=== PATIENT | male | born 1960 | race Caucasian/White ===

== ENCOUNTER 2019-08-29 11:46 | Inpatient (IN) | payer MEDICAID, OTHER ==
[~2019-08-29] VITALS: Ht 167.6 cm; Wt 60.8 kg
[~2019-08-29 11:46] MED LIST: ASPI-1497 PO; LEVO175T7 PO; METO25TA6 PO; NITR0.4T SL; SIMV-43 PO
[2019-08-29] MEDS ORDERED: ONDANSETRON HCL 4MG/2ML INJ IV STA (12:18)
[2019-08-29] MEDS ORDERED: FAMOTIDINE 20MG/2ML VIAL IV STA (12:18)
[2019-08-29] MEDS ORDERED: ATROPINE SULFATE 1MG/10ML SYR ONE (12:24)
[2019-08-29] MEDS ORDERED: ATROPINE SULFATE 1MG/ML VIAL IV ONE (12:30)
[2019-08-29 12:56] LABS: BASOPHILS % 0.8 % (0.0-2.0); EOSINOPHILS % 2.1 % (0.0-5.0); HEMATOCRIT. 43.8 % (42.0-52.0); HEMOGLOBIN. 15.1 g/dL (14.0-18.0); LYMPHOCYTES % 23.5 % (20.0-50.0); MEAN CORPUSCULAR HEMOGLOBIN 32.1 pg (28.0-32.0); MEAN CORPUSCULAR VOLUME 93.3 fL (80.0-94.0); MEAN PLATELET VOLUME 9.1 fl (7.4-10.4); MONOCYTES % 9.3 % (2.0-8.0); NEUTROPHILS % 64.3 % (40.0-76.0); PLATELET 152 x1000/uL (130-400); RED CELL DISTRIBUTION WIDTH 15.1 % (11.6-14.6)
[2019-08-29 12:59] LABS: CHLORIDE 112 mEq/L (98-107)
[2019-08-29 13:00] LABS: INR 1.1
[2019-08-29 13:03] LABS: ETHANOL BLOOD < 10 mg/dL
[2019-08-29] MEDS ORDERED: DOPAMINE 400MG/250ML PREMIX 250 ML IV ONE ×2 (13:06→19:15)
[2019-08-29] MEDS ORDERED: LIDOCAINE HCL 1% 20ML VIAL (Pyxis) INJ ONE (13:08)
[2019-08-29] MEDS ORDERED: DEXTROSE 50% WATER 50ML SYRINGE IV ONE (13:15)
[2019-08-29] MEDS ORDERED: IPRATROPIUM/ALBUTEROL 0.5-3(2.5)MG/3ML NEB NEB PRN (13:45)
[2019-08-29] MEDS ORDERED: ONDANSETRON HCL 4MG/2ML INJ IV PRN (13:45)
[2019-08-29] MEDS ORDERED: KETOROLAC 30MG/ML VIAL IV PRN (13:45)
[2019-08-29] MEDS ORDERED: MAGNESIUM/ALUMINUM HYDROXIDE/SIMETHICONE 30ML UDC PO PRN (13:45)
[2019-08-29] MEDS ORDERED: NITROGLYCERIN 0.4MG TABLET SL SL PRN (13:45)
[2019-08-29] MEDS ORDERED: GUAIFENESIN 200MG/10ML SUGAR FREE UDC PO PRN (13:45)
[2019-08-29] MEDS ORDERED: CLONIDINE 0.1MG TABLET PO PRN (13:45)
[2019-08-29] MEDS ORDERED: ACETAMINOPHEN 325MG TABLET PO PRN ×2 (13:45)
[2019-08-29] MEDS ORDERED: LEVOTHYROXINE SODIUM 100 MCG/ VIAL IV SCH (14:00)
[2019-08-29] MEDS: ENOXAPARIN 40MG/0.4ML SYR SUBCUT SCH (14:00)
[2019-08-29] MEDS ORDERED: ASPIRIN 325MG EC TABLET PO SCH ×2 (14:00→14:15)
[2019-08-29] MEDS: ZINC SULFATE 220 MG ( 50 ) CAPSULE PO SCH (15:29)
[2019-08-29 15:51] LABS: CLARITY URINE CLEAR (CLEAR); COLOR URINE YELLOW (YELLOW); KETONES URINE NEGATIVE (NEGATIVE); LEUKOCYTE ESTERASE URINE NEGATIVE (NEGATIVE); NITRITE URINE NEGATIVE (NEGATIVE); OCCULT BLOOD URINE TRACE (NEGATIVE); PH URINE 6.5 (4.5-8.0); PROTEIN URINE NEGATIVE (NEGATIVE); SPECIFIC GRAVITY URINE 1.013 (1.005-1.030); UROBILINOGEN URINE 0.2 E.U./dL (0.2-1.0)
[2019-08-29 16:32] LABS: *AMPHETAMINES SCREEN URINE NEGATIVE (NEGATIVE); *BARBITURATES SCREEN URINE NEGATIVE (NEGATIVE); *BENZODIAZEPINES SCREEN URINE NEGATIVE (NEGATIVE); *COCAINE SCREEN URINE PRESUMTIVE POSITIVE (NEGATIVE); METHADONE URINE SCREEN NEGATIVE (NEGATIVE); OPIATES URINE SCREEN NEGATIVE (NEGATIVE)
[2019-08-29 16:33] LABS: CANNABINOID URINE SCREEN NEGATIVE (NEGATIVE); PHENCYCLIDINE URINE SCREEN NEGATIVE (NEGATIVE)
[2019-08-29] MEDS ORDERED: DOPAMINE 800MG PREMIX (DOUBLE) 250 ML IV PRN (19:00)
[2019-08-29] MEDS: DOPAMINE 400MG/250ML PREMIX 250 ML IV PRN (20:43)
[2019-08-29] MEDS: ASCORBIC ACID 500 MG TABLET PO SCH (21:00)
[2019-08-29] MEDS: FAMOTIDINE 20MG TABLET PO SCH (21:00)
[2019-08-29 21:35] LABS: T4 FREE 0.55 ng/dL (0.76-1.46)
[2019-08-30] VITALS (60 sets, daily range): BP systolic 46–199; BP diastolic 22–139
[2019-08-30 00:11] LABS: CREATINE KINASE MB FRACTION 22.1 ng/mL (0.5-3.6)
[2019-08-30 00:25] LABS: CREATINE KINASE 2055 IU/L (39-308)
[2019-08-30] MEDS: ZOLPIDEM TARTRATE 5MG TABLET PO PRN ×2 (00:57→20:20)
[2019-08-30] MEDS ORDERED: LEVOTHYROXINE SODIUM 50MCG TABLET PO SCH (06:30)
[2019-08-30] MEDS ORDERED: DOPAMINE HCL 400 MG in DEXT 5% WATER 250 ML IV PRN (09:45)
[2019-08-30] MEDS ORDERED: SODIUM BICARBONATE 4% (2.4MEQ) 5ML VIAL IV ONE (09:47)
[2019-08-30] MEDS ORDERED: LIDOCAINE HCL 1% 20ML VIAL (Pyxis) INJ ONE (09:47)
[2019-08-30] MEDS: FAMOTIDINE 20MG TABLET PO SCH ×2 (10:30→20:13)
[2019-08-30] MEDS: TAMSULOSIN HCL 0.4MG SR CAPSULE PO SCH ×2 (10:30→20:20)
[2019-08-30] MEDS: ASCORBIC ACID 500 MG TABLET PO SCH ×2 (10:30→20:12)
[2019-08-30] MEDS: ASPIRIN 81MG TABLET PO SCH ×2 (10:30→18:36)
[2019-08-30] MEDS: ZINC SULFATE 220 MG ( 50 ) CAPSULE PO SCH (10:31)
[2019-08-30] MEDS: LEVOTHYROXINE SODIUM 150MCG TABLET PO SCH (10:31)
[2019-08-30] MEDS: KETOROLAC 15MG/ML VIAL IV PRN ×2 (10:32→19:07)
[2019-08-30] MEDS: DOPAMINE 400MG/250ML PREMIX 250 ML IV PRN ×2 (11:30→16:26)
[2019-08-30] MEDS ORDERED: DOBUTAMINE 250MG PREMIX 250 ML IV SCH (13:00)
[2019-08-30] MEDS ORDERED: DOBUTAMINE 250MG PREMIX 250 ML IV PRN (13:00)
[2019-08-30] MEDS: DUTASTERIDE 0.5MG CAPSULE PO SCH (13:37)
[2019-08-30] MEDS: ENOXAPARIN 40MG/0.4ML SYR SUBCUT SCH (13:44)
[2019-08-31] VITALS (95 sets, daily range): BP systolic 31–147; BP diastolic 15–86
[2019-08-31] MEDS: DOPAMINE 400MG/250ML PREMIX 250 ML IV PRN ×3 (03:11→23:01)
[2019-08-31] MEDS: ZINC SULFATE 220 MG ( 50 ) CAPSULE PO SCH (08:07)
[2019-08-31] MEDS: ASCORBIC ACID 500 MG TABLET PO SCH ×2 (08:07→21:07)
[2019-08-31] MEDS: ASPIRIN 81MG TABLET PO SCH ×2 (08:07→16:36)
[2019-08-31] MEDS: TAMSULOSIN HCL 0.4MG SR CAPSULE PO SCH ×2 (08:08→21:08)
[2019-08-31] MEDS: FAMOTIDINE 20MG TABLET PO SCH ×2 (08:08→21:08)
[2019-08-31] MEDS: DUTASTERIDE 0.5MG CAPSULE PO SCH (08:08)
[2019-08-31] MEDS: LEVOTHYROXINE SODIUM 150MCG TABLET PO SCH (08:08)
[2019-08-31] MEDS: MIDODRINE HCL 2.5MG TABLET PO SCH ×3 (09:00→16:36)
[2019-08-31] MEDS: ENOXAPARIN 40MG/0.4ML SYR SUBCUT SCH (13:53)
[2019-08-31] MEDS: KETOROLAC 15MG/ML VIAL IV PRN (16:37)
[2019-08-31] MEDS: DOCUSATE SODIUM 100MG CAPSULE PO PRN ×2 (18:12→21:07)
[2019-09-01] VITALS (55 sets, daily range): BP systolic 87–209; BP diastolic 41–84
[2019-09-01] MEDS: LEVOTHYROXINE SODIUM 150MCG TABLET PO SCH ×2 (07:30→08:58)
[2019-09-01] MEDS: FAMOTIDINE 20MG TABLET PO SCH ×3 (08:58→20:36)
[2019-09-01] MEDS: ZINC SULFATE 220 MG ( 50 ) CAPSULE PO SCH ×2 (08:58→09:00)
[2019-09-01] MEDS: ASCORBIC ACID 500 MG TABLET PO SCH ×3 (08:58→20:36)
[2019-09-01] MEDS: ASPIRIN 81MG TABLET PO SCH ×3 (08:58→17:22)
[2019-09-01] MEDS: DUTASTERIDE 0.5MG CAPSULE PO SCH ×2 (08:58→09:00)
[2019-09-01] MEDS: TAMSULOSIN HCL 0.4MG SR CAPSULE PO SCH ×3 (08:59→20:35)
[2019-09-01] MEDS: MIDODRINE HCL 5MG TABLET PO SCH ×3 (08:59→17:00)
[2019-09-01] MEDS: ENOXAPARIN 40MG/0.4ML SYR SUBCUT SCH (14:00)
[2019-09-01] MEDS: ZOLPIDEM TARTRATE 5MG TABLET PO PRN (23:12)
[2019-09-01] MEDS: KETOROLAC 15MG/ML VIAL IV PRN (23:49)
[2019-09-02 08:28] VITALS: BP 51/33
[2019-09-02 08:34] VITALS: BP 35/16
[2019-09-02] MEDS: TAMSULOSIN HCL 0.4MG SR CAPSULE PO SCH (08:35)
[2019-09-02] MEDS: DUTASTERIDE 0.5MG CAPSULE PO SCH (08:35)
[2019-09-02] MEDS: ASPIRIN 81MG TABLET PO SCH (08:36)
[2019-09-02] MEDS: FAMOTIDINE 20MG TABLET PO SCH (08:36)
[2019-09-02] MEDS: ZINC SULFATE 220 MG ( 50 ) CAPSULE PO SCH (08:36)
[2019-09-02] MEDS: ASCORBIC ACID 500 MG TABLET PO SCH (08:36)
[2019-09-02] MEDS: DOCUSATE SODIUM 100MG CAPSULE PO PRN (08:36)
[2019-09-02] MEDS: LEVOTHYROXINE SODIUM 150MCG TABLET PO SCH (08:36)
[2019-09-02] MEDS: MIDODRINE HCL 5MG TABLET PO SCH (08:37)
[2019-09-02] MEDS ORDERED: MIDO5TAB4 PO (08:50)
[2019-09-02] MEDS ORDERED: TAMS-11 PO (08:50)
[2019-09-02] MEDS ORDERED: LEVO175T7 PO (08:50)
[2019-09-02] MEDS ORDERED: ASPI-1497 PO (08:50)
[2019-09-02] MEDS ORDERED: DUTA0.5C2 PO (08:50)
== END 2019-09-02 11:20 | disposition home or self-care (01) | DRG 241 ==
LOC: ER 11:46 → MICUSO 12:52 → EDBEDREQTM 12:54 → EDBEDREQ 12:54 → 5EST 08-30 09:21
PROVIDERS: ADMIT Internal Medicine; ATTEND Internal Medicine
PROC: 05H633Z Insertion of Infusion Device into Left Subclavian Vein, Percutaneous Approach (ICD-10-PCS; principal; 2019-08-29)
PROC: B547ZZA Ultrasonography of Left Subclavian Vein, Guidance (ICD-10-PCS; 2019-08-29)
PROC: 05HY33Z Insertion of Infusion Device into Upper Vein, Percutaneous Approach (ICD-10-PCS; 2019-08-30)
PROC: B54NZZA Ultrasonography of Left Upper Extremity Veins, Guidance (ICD-10-PCS; 2019-08-30)
DX: K29.70 Gastritis, unspecified, without bleeding (principal); E44.1 Mild protein-calorie malnutrition; I49.5 Sick sinus syndrome; I11.9 Hypertensive heart disease without heart failure; E03.9 Hypothyroidism, unspecified; Z66 Do not resuscitate; R79.89 Other specified abnormal findings of blood chemistry; E78.5 Hyperlipidemia, unspecified; F17.210 Nicotine dependence, cigarettes, uncomplicated; G89.4 Chronic pain syndrome; I25.10 Atherosclerotic heart disease of native coronary artery without angina pectoris; J44.9 Chronic obstructive pulmonary disease, unspecified; Z51.5 Encounter for palliative care; Z79.82 Long term (current) use of aspirin; Z79.899 Other long term (current) drug therapy; Z86.73 Personal history of transient ischemic attack (TIA), and cerebral infarction without residual deficits; I25.2 Old myocardial infarction; Z86.79 Personal history of other diseases of the circulatory system; Z95.0 Presence of cardiac pacemaker; Z95.5 Presence of coronary angioplasty implant and graft; Z68.21 Body mass index [BMI] 21.0-21.9, adult; Z03.818 Encounter for observation for suspected exposure to other biological agents ruled out
CPT/HCPCS: 36415; 71045; 74176; 76937; 80053; 80061; 80305; 80320; 81003; 82550; 82553; 82962; 83036; 83735; 83880; 84439; 84443; 84484; 85025; 93005; 93306; 93970; 99291; C1725; J0461; J1250; J1265; J1650; J1885; J2405; J3490; G0480; U0003-CS